=== PATIENT | female | born 1980 | race Caucasian/White ===

== ENCOUNTER 2017-01-18 13:05 | Emergency (ER) | payer OTHER ==
--- NOTE | ~2017-01-18 | CT71 ---
[facility] A Service of [facility] RADIOLOGY TEXT RESULTS PATIENT: RENARD YOO LOCATION: [facility] : 78 UNIT #: [id number] AGE: [address]: Nam Patten MD SEX: F ORDER DR: [id number] [facility] [address]. [place], [place] [address] [id number] MR#: [id number] Acc #: [id number] NAME: RENARD YOO : 1980 SEX: F STUDY DATE/TIME: 01/18/2017 15:15 UNIT: [facility] ROOM: STUDY DESCRIPTION: CT Head Wo Contrast Attending Physician: Nam Patten M.D. Ordering Physician: Nam Patten M.D. Primary Care Physician: Jens Xavier M.D. MEDICAL IMAGING REPORT This report is preliminary unless electronic signature is present EXAM CT head without contrast HISTORY Seizure 3 times today. Patient also reports a frontal headache. TECHNIQUE Axial CT images were obtained from the vertex of the skull through the skull base. No intravenous contrast material administered. This CT exam was performed with one or more of the following radiation dose reduction techniques: automatic exposure control, adjustment of mA and/or kV according to patient size, and iterative reconstruction. FINDINGS Ventricular size and configuration are normal. There is no evidence of acute infarct or hemorrhage. There are no extraaxial fluid collections. No mass lesion or mass effect is seen. There are no skull fractures. IMPRESSION Normal noncontrast head CT. Dictated by... Tamar Levy M.D. THIS IS AN ELECTRONICALLY VERIFIED REPORT Tamar Levy M.D. at 01/19/2017 1:19 PM AFF/pcl TD: 01/18/2017 18:10 JOB #: [id number] [facility] A Service [facility] RADIOLOGY TEXT RESULTS PATIENT: RENARD YOO LOCATION: [facility] : 78 UNIT #: [id number] AGE: [address]: Nam Patten MD SEX: F ORDER DR: MEDICAL IMAGING REPORT Page 1 of 1 COPY
[~2017-01-18 13:05] MED LIST: ACETAMINOPHEN PO; ANTIDIARRHEAL2 MG PO; BENADRYL25 MG PO; CLINDAMYCIN HC300 MG PO; CLONAZEPAM2 MG PO; FA-80.8 M1 PO; FLEXERIL10 MG PO; FOLIC ACID1 MG PO; GABAPENTIN800 MG PO; HYDROCODON-ACE1 EAC5 PO; HYDROCODON-ACE1 EAC7 PO; HYDROCODONE-A1 UDTA1 PO; IBUPROFEN800 MG PO; K-DUR20 ME1; K-DUR20 ME1 PO; K-SOL20 MEQ/15 PO; KEPPRA500 M2 PO; KEPPRA500 MG PO; KEPPRA750 M1 PO; KLONOPIN1 MG PO; KLONOPIN2 MG PO; LISINOPRIL-HCTZ1 T18 PO; LISINOPRIL10 MG PO; LO OGESTREL; LORTAB 7.5-5001 TAB PO; MAG-OX 400400 M1 PO; MAGNESIUM500 MG PO; METOPROLOL SUCC25 MG PO; METOPROLOL TAR25 MG PO; MOBIC PO; NEURONTIN PO; NEURONTIN800 MG PO; NO MEDICATIONS; NORCO 5/325 TAB1 TAB PO; OMEPRAZOLE40 M1 PO; OMNICEF300 MG PO; PERCOCET 71 UDTAB 7. PO; PERCOCET 71 UDTAB 71 PO; POTASSIUM OTC; PRILOSEC PO; PROTONIX PO; SKELAXIN PO; TALADINE150 MG PO; ULTRAM PO; VICODIN 5/1 TAB 5/50; VICODIN 5/1 TAB 5/50 PO; VISTARIL PO; ZOLOFT100 MG PO; ZOLOFT50 MG PO; [UNRECOGNIZED DRUG - OTHER]
[2017-01-18 13:51] LABS: POC - CKMB 1.5 ng/mL (0.0-7.9); POC - TROPONIN <0.05 ng/mL (<=0.05)
[2017-01-18 14:01] LABS: AMPHETAMINE NEG (NEG); BARBITURATES NEG (NEG); BENZODIAZEPINES POS (NEG); COCAINE NEG (NEG); MARIJUANA NEG (NEG); OPIATES NEG (NEG); TRICYCLIC ANTIDEPRESSANTS NEG (NEG); U METHADONE NEG (NEG)
[2017-01-18 14:02] LABS: ALBUMIN SERUM 4.1 g/dL (3.5-5.0); BILIRUBIN, DIRECT 0.1 mg/dL (0.0-0.2); BILIRUBIN,INDIRECT 0.2 mg/dL (0.0-0.9); BILIRUBIN,TOTAL 0.3 mg/dL (0.2-2.0); CALCIUM SERUM 8.5 mg/dL (8.4-10.2); CREATININE SERUM 0.4 mg/dL (0.6-1.4); GLOM FILT RATE Estimated 133.1 mL/min (>60); PROTEIN TOTAL SERUM 7.4 g/dL (6.0-8.3)
[2017-05-06] MEDS ORDERED: PATIENT'S PHARMACY (12:31)
[2017-05-06] MEDS ORDERED: METOPROLOL SUCC25 MG PO (12:31)
[2017-05-06] MEDS ORDERED: KEPPRA500 MG PO (12:32)
[2017-05-06] MEDS ORDERED: FOLIC ACID1 MG PO (12:32)
[2017-05-06] MEDS ORDERED: POTASSIUM CHLO20 ME1 PO (12:32)
[2017-05-06] MEDS ORDERED: GABAPENTIN400 M2 PO (12:32)
[2017-05-06] MEDS ORDERED: ZOLOFT100 MG PO (12:32)
[2017-05-10] MEDS ORDERED: B-121000 MC1 PO (10:50)
[2017-05-10] MEDS ORDERED: PROTONIX PO (10:51)
== END 2017-01-18 16:15 | disposition home or self-care (01) ==
LOC: CED 13:05
PROVIDERS: Emergency Medicine
DX: G40.909 Epilepsy, unspecified, not intractable, without status epilepticus (principal); F10.129 Alcohol abuse with intoxication, unspecified; F17.210 Nicotine dependence, cigarettes, uncomplicated; Y90.7 Blood alcohol level of 200-239 mg/100 ml
CPT/HCPCS: 36415; 70450; 80048; 80076; 80307; 82553; 82947; 84484; 84703; 96365; 99284; G0480; J1953; J3411; J3475

== ENCOUNTER 2017-03-27 11:00 | Inpatient (IN) | payer OTHER ==
[~2017-03-27] VITALS: Ht 160 cm; Wt 66.0 kg
--- NOTE | ~2017-03-27 | CR72 ---
[facility] A Service of [facility] RADIOLOGY TEXT RESULTS PATIENT: RENARD YOO LOCATION: [facility] 304-01 : 79 UNIT #: [id number] AGE: [address]: Arabella Dwyer MD SEX: F ORDER DR: [id number] [facility] [address] [place], [place] [address] [id number] I MR#: [id number] Acc #: [id number] NAME: RENARD YOO. : 1980 SEX: F STUDY DATE/TIME: 03/29/2017 16:57 UNIT: [address] ROOM: [facility] STUDY DESCRIPTION: CR Chest Single View Portable Attending Physician: Arabella Dwyer M.D. Ordering Physician: Arabella Dwyer M.D. Primary Care Physician: Jens Xavier M.D. MEDICAL IMAGING REPORT This report is preliminary unless electronic signature is present EXAM Portable chest x-ray 03/29/2017 HISTORY Chest pain. Anemia, chest pain today. FINDINGS AP radiograph of the chest is presented. Comparison 05/12/2016. Right upper extremity approach PICC unchanged. Status post cholecystectomy. Stable borderline cardiac enlargement. Lung volumes remain low. Airspace disease bilaterally, most pronounced in the right upper lobe and left lung base. There may be some minimal patchy airspace disease in the left upper lobe and in the right infrahilar region. Appearance concerning for bilateral pneumonia. Short-interval followup to complete radiographic resolution is strongly recommended. There is no pleural effusion and no pneumothorax. Dictated by... Philip Meeks M.D. THIS IS AN ELECTRONICALLY VERIFIED REPORT Philip Meeks M.D. at 03/30/2017 6:25 PM PASCUAL/milka TD: 03/30/2017 07:41 JOB #: [id number] MEDICAL IMAGING REPORT Page 1 of 1 COPY
--- NOTE | ~2017-03-27 | CO ---
Unit #: [id number] #: [id number] Patient: RENARD YOO [id number] [address] [place], [place] [address] [id number] I MR#: [id number] NAME: RENARD YOO. ROOM: 304 Age: 36 Sex: F Admission Date: 03/27/2017 : 1980 Attending Physician: Arabella Dwyer M.D. Primary Care Physician: Jens Xavier M.D. CONSULTATION REPORT REASON FOR EVALUATION Severe anemia. Please evaluate. HISTORY OF PRESENT ILLNESS The patient is a 36-year-old lady who came in with swollen feet. She was found to be severely anemic, hypokalemic and having a low B12 and iron levels and we were requested to evaluate. The patient is a 89 alcoholic lady who a year ago had a severely fatty liver and evidence of multifactorial anemia. 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 She was also found to be deficient in B12 and iron. We are requested to evaluate. Today on questioning she states that she is just worried about her feet which swelled up. I immediately told her that the Dopplers are negative and she took a sigh of relief as she was worried that there may be clots in her legs. PAST MEDICAL HISTORY 1. Alcoholism. 2. Cirrhosis. 3. Pancreatitis. 4. Seizure disorder. 5. Hypertension. 6. Multivitamin deficiencies. PAST SURGICAL HISTORY 1. Liver biopsy. 2. Minor surgeries. SOCIAL HISTORY Yeos-zkf-aqg smoker for decades. She states that she needs hard liquor to fall asleep with. She did not specify how many. FAMILY HISTORY Positive for hypertension. ALLERGIES No known drug allergies. CHRONIC MEDICATIONS 1. Gabapentin. 2. Keppra. 3. Magnesium. 4. Zoloft. Unit #: [id number] #: [id number] Patient: RENARD YOO 5. Folic acid. 6. B12. 7. Potassium. 8. Melatonin. 9. Advil. REVIEW OF SYSTEMS Mainly tiredness. Easy fatigability. Difficulty sleeping. Early waking up in the morning. Swollen feet. Otherwise 8 or 10 systems within normal limits. PHYSICAL EXAMINATION GENERAL: Moderately pale. No palpable nodes. LUNGS: Clear. HEART: Distant S1 and S2. ABDOMEN: Diffuse tenderness. Possible spleen tip palpable. PELVIC/BREAST: Not done. EXTREMITIES: Lower extremities, the swelling has resolved but there are multiple scars. She states that they are old and they were due to some skin condition she had in the past. DIAGNOSTIC STUDIES LABORATORY: Chemistries, glucose 95, BUN 8, creatinine 0.3, sodium 139, potassium 4, chloride 112, CO2 20. Total bilirubin 0.8, AST inverted at 54 and ALT 20, alkaline phosphatase 203. Iron 9, ferritin 5, saturation 2 for the iron, B12 98, folate 7.7. CBC, hemoglobin 9.4, hematocrit 29.6, white count 4,800, platelets 127,000. PATHOLOGY: Multiple biopsies have been done, showing chronic inflammation. Chronic gastritis on the pathology from 2011. Cholecystectomy, chronic cholelithiasis. That was multiple years ago. 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 PLAN I had a long discussion with her regarding alcoholism and quitting. She states that she will. At the same time value of IV iron was explained and she is in agreement. Will treat with Ferrlecit 250 mg IV daily for 3 days. Continue B12 1000 mcg daily for 7 days, then weekly for 4 weeks, then once a month. CT of the abdomen and pelvis with contrast to check for cirrhosis and hypersplenism. Dictated by... Mor Myers M.D. SPS/gz TD: 03/29/2017 13:32 JOB #: [id number] Unit #: [id number] #: [id number] Patient: RENARD YOO CONSULTATION REPORT Page 1 of 1 X Mor Myers MD CONSULTATION REPORT
--- NOTE | ~2017-03-27 | CT2 ---
[facility] A Service of [facility] RADIOLOGY TEXT RESULTS PATIENT: RENARD YOO LOCATION: [facility] 304-01 : [birth year] UNIT #: [id number] AGE: [address]: Arabella Dwyer MD SEX: F ORDER DR: [id number] [facility] [address] [place], [place] [address] [id number] I MR#: [id number] Acc #: [id number] NAME: RENARD YOO. : 1980 SEX: F STUDY DATE/TIME: 03/29/2017 13:56 UNIT: [address] ROOM: [facility] STUDY DESCRIPTION: CT Abd and Pelv W Cont Attending Physician: Arabella Dwyer M.D. Ordering Physician: Mor Myers M.D. Primary Care Physician: Jens Xavier M.D. MEDICAL IMAGING REPORT This report is preliminary unless electronic signature is present EXAM CT abdomen and pelvis with contrast DATE 03/29/2017 HISTORY Mid abdominal pain for 1 week, low back pain for [address]. [address] abdomen and pelvis with contrast 05/08/2016. PROCEDURE 5 mm axial images from the lung bases through the lesser trochanters with intravenous contrast. Enteric contrast not administered. Sagittal and coronal reformatted images were obtained. This CT exam was performed with one or more of the following radiation dose reduction techniques: Automatic exposure control, adjustment of mA and/or kV according to patient size, and iterative reconstruction. FINDINGS ABDOMEN FINDINGS: There is an enlarged cystic lesion within the pancreatic head. Currently it measures 2.9 cm compared to 1 cm on 05/08/2016. It may represent interval enlargement of preexisting pseudocyst. Extensive multifocal cystic changes are seen throughout the pancreatic parenchyma, which appears moderately atrophic. The cystic changes appear to conform to the duct itself and may represent cystic-type ductal dilation. Similar findings were documented on the previous CT. An additional cystic focus is demonstrated within the uncinate process of the pancreas measuring about 1.4 cm, previously measuring about 7 mm. The common bile duct appears dilated up to 9 mm in the region of the pancreatic head, slightly increased from 7 mm on the previous study. The [facility] A Service of [facility] RADIOLOGY TEXT RESULTS PATIENT: RENARD YOO LOCATION: [facility] 304-01 : [birth year] UNIT #: [id number] AGE: [address]: Arabella Dwyer MD SEX: F ORDER DR: presumed enlarged pseudocyst in the pancreatic head creates some extrinsic mass effect upon the CBD. However, there is no intrahepatic biliary ductal dilation. There is subtle fat reticulation surrounding the pancreas, raising the possibility of acute pancreatitis. What appears to be a pseudocyst is seen along the posterior wall of the stomach measuring 1.6 cm and is not appreciably changed. Small-quantity abdominal ascites is seen predominantly surrounding the liver and, to a lesser degree, the spleen. Incidental note is made of partial colonic interposition anterior to the liver, which has mild gaseous distension. The appendix appears within normal limits. Small bilateral pleural effusions are present. Patchy alveolar disease changes demonstrated posteriorly in the bilateral lower lobes may represent pneumonia or sequelae of aspiration. Cholecystectomy. No focal liver lesions are seen. Spleen is mildly enlarged at 14.3 cm [id number], but this is similar to prior exam. Splenic vein appears patent. Adrenal glands are normal. Bilateral renal cysts are incidentally noted. No intraperitoneal or retroperitoneal hematoma is identified. PELVIS FINDINGS: Small quantity pelvic free fluid is demonstrated. No pelvic hematoma is evident. Urinary bladder and rectum are normal. Presumed corpus luteum in the right ovary measuring 1.6 cm. [address]amp[address] is in place within the vagina. No acute osseous abnormalities. IMPRESSION 1. Extensive cystic type changes versus cystic dilation of the pancreatic duct, similar to the 05/08/2016 exam. Findings may represent changes of chronic pancreatitis with multiple pseudocysts. IPMN, as previously discussed, could have a similar appearance. 2. There is an enlarged cystic lesion within the pancreatic head, now measuring 2.9 cm compared to 1 cm previously. This could represent interval enlargement of preexisting pseudocyst. It does appear to create mild extrinsic compression upon the CBD as it courses through the pancreatic head. 3. Subtle inflammatory changes surrounding the pancreatic body may represent superimposed mild acute pancreatitis. 4. Pseudocyst intimately associated with the posterior wall of the stomach, unchanged from 05/08/2016. 5. No splenic vein thrombus is seen. 6. Small-quantity abdominal and pelvic ascites is present. No STS. [facility] A Service of [facility] RADIOLOGY TEXT RESULTS PATIENT: RENARD YOO LOCATION: [facility] 304-01 : [birth year] UNIT #: [id number] AGE: [address]: Arabella Dwyer MD SEX: F ORDER DR: intraperitoneal or retroperitoneal hematoma is identified. 7. Development of small bilateral pleural effusions. Patchy alveolar disease within the bilateral lower lobes may represent changes of pneumonia or aspiration. 8. The appendix is normal. 9. Stable mild splenomegaly. 10. Cholecystectomy. Dictated by... Shayna Armenta M.D. THIS IS AN ELECTRONICALLY VERIFIED REPORT Shayna Armenta M.D. at 03/30/2017 8:56 AM LISETTE/romeo TD: 03/30/2017 01:28 JOB #: [id number] MEDICAL IMAGING REPORT Page 1 of 1 COPY
--- NOTE | ~2017-03-27 | US88 ---
[facility] A Service of [facility] RADIOLOGY TEXT RESULTS PATIENT: RENARD YOO LOCATION: [facility] 304-01 : [birth year] UNIT #: [id number] AGE: [address]: Arabella Dwyer MD SEX: F ORDER DR: [id number] [facility] [address] [place], [place] [address] [id number] I MR#: [id number] Acc #: [id number] NAME: RENARD YOO. : 1980 SEX: F STUDY DATE/TIME: 03/29/2017 14:42 UNIT: [address] ROOM: [facility] STUDY DESCRIPTION: US Liver or Hepatic Attending Physician: Arabella Dwyer M.D. Ordering Physician: Arabella Dwyer M.D. Primary Care Physician: Jens Xavier M.D. MEDICAL IMAGING REPORT This report is preliminary unless electronic signature is present EXAM Liver ultrasound. HISTORY Right upper quadrant and epigastric pain and nausea and vomiting for 2 days. FINDINGS Ultrasound examination of the liver demonstrates coarsened and echogenic hepatic parenchyma compatible with fatty infiltration. Mild hepatomegaly. No biliary dilatation. Cholecystectomy. Very small amount of perihepatic ascites. Survey of the right kidney demonstrates no hydronephrosis or renal mass. The main portal vein and main hepatic artery are patent and the hepatic veins are patent. The upper abdominal IVC is also patent. IMPRESSION 1. Fatty infiltration of the liver. 2. No hepatic mass or biliary dilatation. 3. Small amount of perihepatic ascites. 4. The main portal vein and main hepatic artery and the hepatic veins are patent. Dictated by... Kerwin Ledezma M.D. THIS IS AN ELECTRONICALLY VERIFIED REPORT Kerwin Ledezma M.D. at 03/30/2017 11:42 PM DFMaryann/armin TD: 03/30/2017 06:38 JOB #: [id number] [facility] A Service of [facility] RADIOLOGY TEXT RESULTS PATIENT: RENARD YOO LOCATION: [facility] 304-01 : [birth year] UNIT #: [id number] AGE: [address]: Arabella Dwyer MD SEX: F ORDER DR: MEDICAL IMAGING REPORT Page 1 of 1 COPY
--- NOTE | ~2017-03-27 | HP ---
Unit #: [id number] #: [id number] Patient: RENARD YOO [id number] [address] [place], [place] [address] [id number] I MR#: [id number] NAME: RENARD YOO ROOM: 304 Age: 36 Sex: F Admission Date: 03/27/2017 : 1980 Attending Physician: Richard Dao M.D. Primary Care Physician: Jens Xavier M.D. HISTORY AND PHYSICAL HISTORY OF PRESENT ILLNESS A 36-year-old white female alcoholic, history of cirrhosis, pancytopenia, seizure disorder, pancreatic cyst, chronic hyponatremia, hypokalemia, folic acid deficiency, admitted through the emergency room with new onset bilateral lower extremity edema for three days. In the emergency room, she was found to have a hemoglobin of 5.7 and a potassium of 2.3. She has no GI symptoms. She was heme negative on rectal exam in the emergency room. She has no melena, nausea, vomiting, abdominal pain. Her menstrual cycles are somewhat irregular but have not been particularly heavy lately. Last hemoglobin here was 11.4, April of 2016, and she is admitted for further evaluation and transfusion and replacement of her potassium. PAST MEDICAL HISTORY Seizure disorder, alcoholism, cirrhosis, pancreatitis, hypertension, hypomagnesemia, hypokalemia, folic acid deficiency. PAST SURGICAL HISTORY She has had liver biopsy, tonsillectomy, cholecystectomy, partial thyroidectomy. SOCIAL HISTORY The patient smokes one pack of cigarettes daily, tells me she drinks three drinks a week, denies any IV drug use or illegal drug use. FAMILY HISTORY Positive for hypertension. ALLERGIES She has no known drug allergies. MEDICATIONS PRIOR TO ADMISSION 1. Keppra 500 mg b.i.d. 2. Gabapentin 800 mg t.i.d. 3. Potassium 20 mEq b.i.d. 4. Magnesium 400 mg daily. 5. Zoloft 100 mg daily. 6. Folic acid 1 mg daily. 7. B12 1,000 mcg daily. 8. Melatonin 8 mg q.h.s. 9. Advil p.r.n. PHYSICAL EXAMINATION GENERAL APPEARANCE: She is awake, alert, oriented x3, in no acute distress. is at the bedside during the history and physical Unit #: [id number] #: [id number] Patient: RENARD YOO examination. HEENT: Unremarkable except for pale mucous membranes. NECK: Supple without JVD, bruits, adenopathy or thyromegaly. CHEST: Clear to auscultation. HEART: Regular rate and rhythm without any murmurs, rubs or gallops. ABDOMEN: Soft, nondistended, nontender with positive bowel sounds and no hepatosplenomegaly. EXTREMITIES: 2+ pitting edema of the bilateral lower extremities without any clubbing or cyanosis. GENITOURINARY: Deferred. RECTAL: Deferred. NEUROLOGIC: Grossly intact. DIAGNOSTIC STUDIES LABORATORY: White count 2.7, hemoglobin 5.7, MCV 79, RDW 19.8. BNP 76. PT and PTT within normal limits. Potassium 2.3, magnesium 1.7, albumin 3.0, alkaline phosphatase 196, AST 49, folic acid 7.7. CARDIOVASCULAR: EKG: Normal sinus rhythm, low voltage QRS, nonspecific ST abnormality. IMPRESSION 1. Microcytic anemia. 2. Leukopenia. 3. Hypokalemia. 4. Elevated liver function tests. 5. Alcoholic cirrhosis. 6. Edema likely secondary to anemia. 7. Seizure disorder. 8. Tobacco use. PLAN Iron, B12, folic acid, thyroid levels, transfuse to keep hemoglobin above 7, replace potassium per protocol, check inferior vena cava portal vein ultrasound to rule out portal vein thrombosis and lower extremity Dopplers to rule out DVT. She will be on SCDs currently for DVT prophylaxis until further workup. Dictated by Laurie Lopez/antonio TD: 03/27/2017 17:29 JOB #: [id number] HISTORY AND PHYSICAL Page 1 of 1 X Richard Dao MD X HISTORY AND PHYSICAL
--- NOTE | ~2017-03-27 | EKG ---
PATIENT: RENARD YOO UNIT #: [id number] Ventricular Rate: 94 BPM Atrial Rate: 94 BPM P-R Interval: 150 ms QRS Duration: 72 ms Q-T Interval: 376 ms QTC Calculation(Bezet): 470 ms P Putnam: 15 degrees Calculated R Putnam: 52 degrees Calculated T Putnam: 24 degrees Diagnosis Line: Normal sinus rhythm Diagnosis Line: Low voltage QRS Diagnosis Line: Normal ECG Diagnosis Line: No previous ECGs available Diagnosis Line: Confirmed by ANITA NELSON MD ([id number]) on 03/28/2017 Diagnosis Line: 3:06:47 PM INTERPRETING MD: OMAR WAN
--- NOTE | ~2017-03-27 | DS ---
Unit #: [id number] #: [id number] Patient: RENARD YOO [id number] [address] [address] [id number] I MR#: [id number] NAME: RENARD YOO. ROOM: 304 Age: 36 Sex: F Admission Date: 03/27/2017 : 1980 Discharge Date: 03/31/2017 Attending Physician: Arabella Dwyer M.D. Primary Care Physician: Jens Xavier M.D. DISCHARGE SUMMARY DATE OF LEAVING AGAINST MEDICAL ADVICE 03/31/17 FINAL DIAGNOSES 1. Multifactorial anemia. 2. Iron-deficiency anemia. 3. B12 deficiency anemia. 4. Alcohol abuse. 5. Chronic pancreatitis per CT scan. 6. Left lower extremity edema. 7. Seizure disorder. 8. Hypokalemia. HOSPITAL COURSE The patient was admitted with severe anemia and Dr. Burris was consulted. The patient received iron therapy IV. CT scan of the abdomen was done which was okay. Potassium was replaced. Echo was ordered but patient signed out against medical advice on 03/31/17. Dictated by... Laurie Sin TD: 04/22/2017 08:49 JOB #: [id number] DISCHARGE SUMMARY Page 1 of 1 X Arabella Dwyer MD X DISCHARGE SUMMARY
--- NOTE | ~2017-03-27 | US84 ---
[id number] [facility] [address] [place], [place] [address] [id number] I MR#: [id number] Acc #: [id number] NAME: RENARD YOO : 1980 SEX: F STUDY DATE/TIME: 03/27/2017 17:01 UNIT: C3A PCU ROOM: 304 STUDY DESCRIPTION: US LE Veins Complete Judah Stdy Attending Physician: Arabella Dwyer M.D. Ordering Physician: Richard Dao M.D. Primary Care Physician: Jens Xavier M.D. MEDICAL IMAGING REPORT This report is preliminary unless electronic signature is present EXAM Bilateral lower extremity venous duplex Doppler. INDICATION Bilateral lower extremity swelling and edema for 1 week. COMPARISON None available. TECHNIQUE Venous ultrasound examination of both lower extremities was performed using grayscale, spectral Doppler and color flow Doppler imaging. FINDINGS The examination is negative. There is no evidence of deep venous thrombus from the groin to the lower calf bilaterally. Visualized greater saphenous veins are also patent. IMPRESSION Negative examination. No evidence of lower extremity deep venous thrombosis. Dictated by... Alen Suarez M.D. THIS IS AN ELECTRONICALLY VERIFIED REPORT Alen Suarez M.D. at 03/28/2017 5:44 PM ROSITA/rylee TD: 03/28/2017 17:34 JOB #: [id number] MEDICAL IMAGING REPORT Page 1 of 1 COPY
--- NOTE | ~2017-03-27 | XA166 ---
[facility] A Service of [facility] & [facility] RADIOLOGY TEXT RESULTS PATIENT: RENARD YOO LOCATION: [facility] 304-01 : [birth year] UNIT #: [id number] AGE: [address]: Arabella Dwyer MD SEX: F ORDER DR: [id number] [facility] [address] [place], [place] [address] [id number] MR#: [id number] Acc #: [id number] NAME: RENARD YOO. : 1980 SEX: F STUDY DATE/TIME: 03/29/2017 13:28 UNIT: A U ROOM: [facility] STUDY DESCRIPTION: XA PICC Line Placement WO Port Attending Physician: Arabella Dwyer M.D. Ordering Physician: Richard Dao M.D. Primary Care Physician: Jens Xavier M.D. MEDICAL IMAGING REPORT This report is preliminary unless electronic signature is present EXAM PICC line insertion 03/29/2017 COMPARISON None. CLINICAL HISTORY IV access needed. PRE-PROCEDURE The procedure was explained to the patient and/or patient arborist representative including risks, benefits, potential complications and potential for alternative forms of treatment. Informed consent was obtained, and prior to initiating the procedure a formal timeout procedure was performed. PROCEDURE Using full standard sterile barrier technique, including caps, gowns, gloves, masks, as well as sterile skin preparation and standard sterile draping, the right arm was prepped and draped in the usual fashion, and real-time sterile ultrasound guidance was used to localize an arm vein and to confirm vessel patency. A hard copy ultrasound image was recorded. After local anesthesia with 1% Xylocaine, the vein was punctured using real-time sterile ultrasound guidance, and an 0.018 guidewire was advanced into the superior vena cava, using fluoroscopic guidance. A 5-Prydeinig dual-lumen PICC was then measured and deployed with the tip positioned in the superior vena cava. The position of the line was documented with a radiographic image. The line was secured in place with an adhesive dressing and an antibiotic patch was applied. Total fluoro time was 0.3 minutes with a single spot image obtained. IMPRESSION [facility] A Service of [facility] & [facility] RADIOLOGY TEXT RESULTS PATIENT: RENARD YOO LOCATION: A 304-01 : [birth year] UNIT #: [id number] AGE: [address]: Arabella Dwyer MD SEX: F ORDER DR: Successful placement of a 5-Prydeinig dual-lumen PowerPICC via the right arm under ultrasound and fluoroscopic guidance. The tip of the PICC is in good position in the superior vena cava. Dictated by... Doyle Saleem M.D. THIS IS AN ELECTRONICALLY VERIFIED REPORT Doyle Saleem M.D. at 04/02/2017 4:52 PM QUIN/tal TD: 03/30/2017 11:11 JOB #: [id number] MEDICAL IMAGING REPORT Page 1 of 1 COPY
[2017-03-27 12:16] LABS: EOSINOPHIL# 0.1 X10e3 (0-0.7); EOSINOPHIL% 1.9 % (0.0-7.0); HEMATOCRIT 19.3 % (35.0-45.0); LYMPHOCYTE# 0.8 X10e3 (1.0-3.5); LYMPHOCYTE% 31.4 % (17.0-45.0); MEAN CORPUSCULAR HEMOGLOBIN 21.9 PG (28-34); MEAN CORPUSCULAR HGB CONC 29.5 g/dL (30-36); MEAN PLATELET VOLUME 7.5 FL (6.5-11.5); MONOCYTE# 0.2 X10e3 (0-1.0); MONOCYTE% 6.8 % (3.0-12.0); NEUTROPHIL# 1.6 X10e3 (1.5-7.1); NEUTROPHIL% 58.9 % (40-75); PLATELET COUNT 162 X10e3 (140-420); RED CELL DISTRIBUTION WIDTH 19.8 % (11.0-15.5); WHITE BLOOD COUNT 2.7 X10e3 (4.0-10.5)
[2017-03-27 12:20] LABS: DIFF IND YES; HEMOGLOBIN 5.7 gm/dL (12.0-16.0)
[2017-03-27 12:41] LABS: ANISOCYTOSIS MOD; PLATELET ESTIMATE NORMAL (NORMAL)
[2017-03-27 12:42] LABS: HYPOCHROMIA MOD; MICROCYTOSIS MOD
[2017-03-27 12:58] LABS: BILIRUBIN, DIRECT 0.1 mg/dL (0.0-0.2); BILIRUBIN,INDIRECT 0.2 mg/dL (0.0-0.9); BILIRUBIN,TOTAL 0.3 mg/dL (0.2-2.0); BUN/CREATININE RATIO 23.33; CALCIUM SERUM 7.8 mg/dL (8.4-10.2); CREATININE SERUM 0.3 mg/dL (0.6-1.4); GLOM FILT RATE Estimated 146.3 mL/min (>60); MAGNESIUM 1.7 mg/dL (1.6-3.0); PROTEIN TOTAL SERUM 6.2 g/dL (6.0-8.3)
[2017-03-27 12:59] LABS: POTASSIUM 2.3 mmol/L (3.5-5.1)
[2017-03-27 13:00] LABS: INR 1.1; PARTIAL THROMBOPLASTIN TIME 25.2 SECONDS (23.5-31.3); PROTHROMBIN TIME (PATIENT) 11.7 SECONDS (10.0-11.7)
[2017-03-27] MEDS ORDERED: KEPPRA500 M2 PO (13:49)
[2017-03-27] MEDS ORDERED: GABAPENTIN800 MG PO (13:50)
[2017-03-27] MEDS ORDERED: POTASSIUM20 MEQ/15 PO (13:53)
[2017-03-27] MEDS ORDERED: MAGNESIUM400 M1 PO (13:54)
[2017-03-27] MEDS ORDERED: FOLIC ACID PO (13:55)
[2017-03-27] MEDS ORDERED: ZOLOFT100 MG PO (13:55)
[2017-03-27] MEDS ORDERED: B 12 (13:57)
[2017-03-27] MEDS ORDERED: MELATONIN1 MG (13:57)
[2017-03-27] MEDS ORDERED: IBUPROFEN (13:58)
[2017-03-27 14:01] LABS: IRON SERUM 9 ug/dL (28-170); TOTAL IRON BINDING CAPACITY 475 ug/dL (269-535); TRANSFERRIN 339 mg/dL (192-382); TRANSFERRIN SATURATION 2 % (20-50)
[2017-03-27 16:42] LABS: THYROID STIMULATING HORMONE 1.7 uIU/ml (0.34-5.60)
[2017-03-27 16:49] LABS: FREE THYROXIN (T4) 0.75 ng/dL (0.58-1.64)
[2017-03-27 18:06] LABS: URINE APPEARANCE CLEAR; URINE BILIRUBIN NEG (NEG); URINE BLOOD NEG (NEG); URINE COLOR YELLOW; URINE GLUCOSE NEG (NEG); URINE KETONE NEG (NEG); URINE LEUKOCYTE ESTERASE NEG (NEG); URINE NITRATE NEG (NEG); URINE PH 6.5 (5-8); URINE PROTEIN NEG (NEG)
[2017-03-27 18:22] LABS: AMPHETAMINE NEG (NEG); BARBITURATES NEG (NEG); BENZODIAZEPINES NEG (NEG); COCAINE NEG (NEG); MARIJUANA NEG (NEG); OPIATES NEG (NEG); TRICYCLIC ANTIDEPRESSANTS NEG (NEG); U METHADONE NEG (NEG)
[2017-03-27 18:35] LABS: BILIRUBIN,TOTAL 0.8 mg/dL (0.2-2.0); CALCIUM SERUM 7.4 mg/dL (8.4-10.2); CREATININE SERUM 0.5 mg/dL (0.6-1.4); GLOM FILT RATE Estimated 123.7 mL/min (>60); POTASSIUM 3.1 mmol/L (3.5-5.1); PROTEIN TOTAL SERUM 6.2 g/dL (6.0-8.3)
[2017-03-28 05:23] LABS: HEMATOCRIT 22.8 % (35.0-45.0); HEMOGLOBIN 7.1 gm/dL (12.0-16.0); MEAN CORPUSCULAR HEMOGLOBIN 25.1 PG (28-34); MEAN CORPUSCULAR HGB CONC 31.2 g/dL (30-36); MEAN PLATELET VOLUME 8.3 FL (6.5-11.5); RED BLOOD COUNT 2.84 X10e (3.90-5.30)
[2017-03-28 05:26] LABS: MEAN CELL VOLUME 80.4 FL (83-96)
[2017-03-28 05:55] LABS: CALCIUM SERUM 6.1 mg/dL (8.4-10.2); CREATININE SERUM 0.3 mg/dL (0.6-1.4); GLOM FILT RATE Estimated 146.3 mL/min (>60); MAGNESIUM 1.8 mg/dL (1.6-3.0)
[2017-03-28 05:58] LABS: POTASSIUM 2.3 mmol/L (3.5-5.1)
[2017-03-29 09:12] LABS: BASOPHIL% 0.7 % (0-2.5); EOSINOPHIL# 0.1 X10e3 (0-0.7); EOSINOPHIL% 1.8 % (0.0-7.0); HEMATOCRIT 29.6 % (35.0-45.0); LYMPHOCYTE# 0.5 X10e3 (1.0-3.5); LYMPHOCYTE% 9.5 % (17.0-45.0); MEAN CELL VOLUME 82.6 FL (83-96); MEAN CORPUSCULAR HEMOGLOBIN 26.3 PG (28-34); MEAN CORPUSCULAR HGB CONC 31.8 g/dL (30-36); MEAN PLATELET VOLUME 8.6 FL (6.5-11.5); MONOCYTE# 0.2 X10e3 (0-1.0); MONOCYTE% 3.2 % (3.0-12.0); NEUTROPHIL# 4.1 X10e3 (1.5-7.1); NEUTROPHIL% 84.8 % (40-75); PLATELET COUNT 127 X10e3 (140-420); RED BLOOD COUNT 3.59 X10e (3.90-5.30); RED CELL DISTRIBUTION WIDTH 22.6 % (11.0-15.5)
[2017-03-29 09:17] LABS: DIFF IND NO; HEMOGLOBIN 9.4 gm/dL (12.0-16.0); WHITE BLOOD COUNT 4.8 X10e3 (4.0-10.5)
[2017-03-29 09:40] LABS: BUN/CREATININE RATIO 26.66; CALCIUM SERUM 6.8 mg/dL (8.4-10.2); CREATININE SERUM 0.3 mg/dL (0.6-1.4); GLOM FILT RATE Estimated 146.3 mL/min (>60); MAGNESIUM 1.9 mg/dL (1.6-3.0)
[2017-03-30 05:01] LABS: HEMATOCRIT 28.2 % (35.0-45.0); HEMOGLOBIN 8.8 gm/dL (12.0-16.0); MEAN CELL VOLUME 82.5 FL (83-96); MEAN CORPUSCULAR HEMOGLOBIN 25.9 PG (28-34); MEAN CORPUSCULAR HGB CONC 31.4 g/dL (30-36); RED BLOOD COUNT 3.41 X10e (3.90-5.30); WHITE BLOOD COUNT 4.5 X10e3 (4.0-10.5)
[2017-03-30 05:53] LABS: BUN/CREATININE RATIO 12.5; CALCIUM SERUM 6.9 mg/dL (8.4-10.2); CREATININE SERUM 0.4 mg/dL (0.6-1.4); GLOM FILT RATE Estimated 133.1 mL/min (>60); POTASSIUM 3.8 mmol/L (3.5-5.1)
[2017-03-31 07:07] LABS: HEMATOCRIT 27.1 % (35.0-45.0); HEMOGLOBIN 8.5 gm/dL (12.0-16.0); MEAN CELL VOLUME 84.3 FL (83-96); MEAN CORPUSCULAR HEMOGLOBIN 26.4 PG (28-34); MEAN CORPUSCULAR HGB CONC 31.4 g/dL (30-36); MEAN PLATELET VOLUME 8.9 FL (6.5-11.5); RED BLOOD COUNT 3.21 X10e (3.90-5.30); RED CELL DISTRIBUTION WIDTH 23.2 % (11.0-15.5); RETICULOCYTE 4.6 % (0.5-2.8); WHITE BLOOD COUNT 3.6 X10e3 (4.0-10.5)
[2017-05-06] MEDS ORDERED: METOPROLOL SUCC25 MG PO (12:31)
[2017-05-06] MEDS ORDERED: PATIENT'S PHARMACY (12:31)
[2017-05-06] MEDS ORDERED: ZOLOFT100 MG PO (12:32)
[2017-05-06] MEDS ORDERED: FOLIC ACID1 MG PO (12:32)
[2017-05-06] MEDS ORDERED: POTASSIUM CHLO20 ME1 PO (12:32)
[2017-05-06] MEDS ORDERED: GABAPENTIN400 M2 PO (12:32)
[2017-05-06] MEDS ORDERED: KEPPRA500 MG PO (12:32)
[2017-05-10] MEDS ORDERED: B-121000 MC1 PO (10:50)
[2017-05-10] MEDS ORDERED: PROTONIX PO (10:51)
== END 2017-03-31 16:39 | disposition left against medical advice (07) | DRG 812 ==
LOC: CED 11:00 → CEDOF 13:33 → C3A PCU 13:33 → CED 14:02 → CEDOF 14:02 → C3A PCU 15:55
PROVIDERS: Emergency Medicine; Internal Medicine; Internal Medicine Medical Oncology; Physician Assistant Medical
PROC: 30233N1 Transfusion of Nonautologous Red Blood Cells into Peripheral Vein, Percutaneous Approach (ICD-10-PCS; principal; 2017-03-27)
PROC: 02HV33Z Insertion of Infusion Device into Superior Vena Cava, Percutaneous Approach (ICD-10-PCS; 2017-03-29)
PROC: B548ZZA Ultrasonography of Superior Vena Cava, Guidance (ICD-10-PCS; 2017-03-29)
PROC: B24BZZZ Ultrasonography of Heart with Aorta (ICD-10-PCS; 2017-03-29)
DX: D50.9 Iron deficiency anemia, unspecified (principal); D61.818 Other pancytopenia; K70.30 Alcoholic cirrhosis of liver without ascites; D72.819 Decreased white blood cell count, unspecified; E87.6 Hypokalemia; R94.5 Abnormal results of liver function studies; R60.0 Localized edema; G40.909 Epilepsy, unspecified, not intractable, without status epilepticus; F17.210 Nicotine dependence, cigarettes, uncomplicated; I10 Essential (primary) hypertension; D73.1 Hypersplenism; Z90.49 Acquired absence of other specified parts of digestive tract; Z82.49 Family history of ischemic heart disease and other diseases of the circulatory system; E53.8 Deficiency of other specified B group vitamins
CPT/HCPCS: 36415; 71010; 74177; 76705; 76937; 77001; 80048; 80053; 80076; 80307; 81003; 82274; 82607; 82728; 82746; 83540; 83550; 83735; 83880; 84439; 84443; 85025; 85027; 85044; 85610; 85730; 86592; 86850; 86900; 86901; 86923; 93005; 93306; 93970; 94760; 99285; C1751; J2550; J2916; J3411; J3420; J3475; J7042; P9016; Q9967